=== PATIENT | male | born 1970 ===

== ENCOUNTER 2024-03-27 06:29 | Day surgery (SDC) | payer OTHER ==
[2024-03-27] MEDS ORDERED: CEFTRIAXONE SODIUM 2,000 MG VIAL IV ONE (19:00)
[2024-03-27] MEDS ORDERED: METRONIDAZOLE/SODIUM CHLORIDE 500 MG/100 ML PIGGYBACK IV ONE (19:00)
[2024-03-27] MEDS ORDERED: BUPIVACAINE HCL 30 ML VIAL IJ ONE (19:00)
[2024-03-27] MEDS ORDERED: PERCOCET 5-3251 EACH PO (19:46)
[2024-03-27] MEDS ORDERED: NEURONTIN300 MG PO (19:46)
[2024-03-27] MEDS ORDERED: POLY119PG PO (19:46)
[2024-03-27] MEDS ORDERED: CELEBREX200MG PO (19:46)
== END 2024-03-28 | disposition home or self-care (01) ==
LOC: CIR.AMB 06:29
PROVIDERS: ATTEND Surgery
DX: K40.90 Unilateral inguinal hernia, without obstruction or gangrene, not specified as recurrent (principal)
CPT/HCPCS: 49650; C1781